=== PATIENT | male | born 1990 | race Caucasian/White ===

== ENCOUNTER 2021-09-03 15:52 | Emergency (ER) | payer MEDICAID ==
[~2021-09-03] VITALS: Ht 185.4 cm; Wt 81.6 kg
[2021-09-03 16:01] VITALS: BP 167/98
--- NOTE | 2021-09-03 17:02 | NUR ---
PT W/C ASSISTED TO BED
[2021-09-03] MEDS ORDERED: diazePAM 5 MG TAB PO ONE (17:20)
[2021-09-03] MEDS ORDERED: KETOROLAC 30 MG/ML VIAL IM ONE (17:20)
--- NOTE | 2021-09-03 17:20 | NUR ---
31 Y/O MALE BIB SELF C/O 02/16 ACHING PAIN IN THE NECK. STATED THAT HE WENT CAMPING AND SLEPT WRONG YESTERDAY, WOKE UP BEING UNABLE TO MOVE NECK WITHOUT PAIN. PT IS ABLE TO SWALLOW, NO LOSS OF SENSATION IN THE FACE, ARMS, NECK, ABLE TO MOVE EXTREMITIES. ALLERGIES: OYSTER EXTRACT PMH: DENIES
[2021-09-03 18:10] VITALS: BP 123/77
--- NOTE | 2021-09-03 18:44 | NUR ---
Patient discharged with v/s stable. Written and verbal after care instructions given ABOUT MUSCLE SPRAIN and explained. Patient verbalized understanding. Ambulatory with steady gait. All questions addressed prior to discharge. Advised to follow up with PMD.
== END 2021-09-03 18:44 | disposition home or self-care (01) ==
LOC: MED 15:52
DX: S16.1XXA Strain of muscle, fascia and tendon at neck level, initial encounter (principal); Z91.018 Allergy to other foods; X58.XXXA Exposure to other specified factors, initial encounter; Y93.89 Activity, other specified; Y92.89 Other specified places as the place of occurrence of the external cause; Y99.8 Other external cause status
CPT/HCPCS: 96372; 99283; J1885

== ENCOUNTER 2021-10-17 15:50 | Emergency (ER) | payer MEDICAID ==
[~2021-10-17] VITALS: Ht 185.4 cm; Wt 83.9 kg
[2021-10-17 15:52] VITALS: BP 140/94
[2021-10-17] MEDS ORDERED: LIDOCAINE 5% 1 EA PATCH TP STA (16:06)
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
[2021-10-17] MEDS ORDERED: KETOROLAC 30 MG/ML VIAL IM ONE (16:10)
--- NOTE | 2021-10-17 16:12 | NUR ---
PT TAKEN TO XRAY VIA WC
[2021-10-17] MEDS ORDERED: LID5T TP (17:14)
[2021-10-17] MEDS ORDERED: CYCL-711 PO (17:14)
[2021-10-17] MEDS ORDERED: IBUP-2213 PO (17:14)
--- NOTE | 2021-10-17 17:30 | NUR ---
Patient discharged with v/s stable. Written and verbal after care instructions given and explained. Patient alert, oriented and verbalized understanding of instructions. Ambulatory with steady gait. All questions addressed prior to discharge. ID band removed. Patient advised to follow up with PMD. Rx of FLEXERIL, MOTRIN, LIDODERM given. Patient educated on indication of medication including possible reaction and side effects. Opportunity to ask questions provided and answered.
== END 2021-10-17 17:30 | disposition home or self-care (01) ==
LOC: MED 15:50
DX: S22.32XA Fracture of one rib, left side, initial encounter for closed fracture (principal); F17.210 Nicotine dependence, cigarettes, uncomplicated; Z79.899 Other long term (current) drug therapy; Z79.1 Long term (current) use of non-steroidal anti-inflammatories (NSAID); Z91.013 Allergy to seafood; W18.40XA Slipping, tripping and stumbling without falling, unspecified, initial encounter; Y93.89 Activity, other specified; Y92.89 Other specified places as the place of occurrence of the external cause; Y99.8 Other external cause status
CPT/HCPCS: 71101; 96372; 99283; J1885